=== PATIENT | female | born 1960 | race Caucasian/White ===

== ENCOUNTER → 2019-12-03 | Outpatient (CLI) | payer OTHER ==
[~2019-12-03] MED LIST: ACETAMINOPHEN-1 EAC1 PO; ADULT LOW DOSE81 MG PO; ROBAXIN500 MG PO; ZOCOR 20 MG TAB20 M1 PO
--- NOTE | 2019-12-03 16:49 | 2DMMODE ---
[place] [address] 2 D/M-MODE ECHOCARDIOGRAM Name: JESSICA COTTER Room: [facility]#: [id number] Admission: 12/03/19 Attend Phys: Delgado Dougherty, Discharge: Date of : 60 Date of Service: 12/03/19 1648 Report #: [id number] THIS REPORT FOR: cc: Shaniqua Cantrell MD, Lin W. MD Blick, David R. MD [facility] ~ APPROVED REPORT Study performed: 12/03/2019 15:39:57 EXAM: Comprehensive 2D, Doppler, and color-flow Echocardiogram Patient Location: Out-Patient BSA: 1.99 HR: 67 bpm BP: 118/79 mmHg Other Information Study Quality: Good Indications Palpitations Chest Pain 2D Dimensions IVSd: 11.28 (7-11mm) LVOT Diam: 20.78 (18-24mm) LVDd: 44.67 mm PWd: 11.04 (7-11mm) Ascending Ao: 31.21 (22-36mm) LVDs: 25.07 (25-40mm) Aortic Root: 28.80 mm Volumes Left Atrial Volume (Systole) LA ESV Index: 11.40 mL/m2 Aortic Valve AoV Peak Ede.: 1.18 m/s AO Peak Gr.: 5.56 mmHg LVOT Max P.52 mmHg AO Mean Gr.: 2.61 mmHg LVOT Mean P.58 mmHg LVOT Max V: 0.94 m/s AO V2 VTI: 21.53 cm LVOT Mean V: 0.57 m/s TREV (VTI): 3.27 cm2 LVOT V1 VTI: 20.78 [place] [address] 2 D/M-MODE ECHOCARDIOGRAM Name: JESSICA COTTER Room: [facility]#: [id number] Admission: 12/03/19 Attend Phys: Delgado Dougherty, Discharge: Date of : 60 Date of Service: 12/03/19 1648 Report #: [id number] E/A Ratio: 0.93 MV Decel. Time: 254.85 ms MV E Max Ede.: 0.52 m/s MV PHT: 73.91 ms MVA (PHT): 2.98 cm2 TDI E/Lateral E': 4.73 E/Medial E': 8.67 Medial E' Ede.: 0.06 m/s Lateral E' Ede.: 0.11 m/s Pulmonary Valve PV Peak Ede.: 1.00 m/s PV Peak Gr.: 4.02 mmHg Tricuspid Valve RAP Estimate: 5.00 mmHg TR Peak Gr.: 24.50 mmHg RVSP: 29.50 mmHg PA Pressure: 29.50 mmHg Left Ventricle The left ventricle is normal size. There is normal LV segmental wall motion. There is normal left ventricular wall thickness. Left ventricular systolic function is normal. The left ventricular ejection fraction is within the normal range. LVEF is 55-60%. Grade I - abnormal relaxation pattern. Right Ventricle The right ventricle is normal size. The right ventricular systolic function is normal. Atria The left atrium size is normal. The right atrium size is normal. Aortic Valve The aortic valve is normal in structure. No aortic regurgitation is present. There is no aortic valvular stenosis. Mitral Valve The mitral valve is normal in structure. Mild mitral regurgitation. No evidence of mitral valve stenosis. Tricuspid Valve The tricuspid valve is normal in structure. Mild [place]icus[place] [address] 2 D/M-MODE ECHOCARDIOGRAM Name: JESSICA COTTER Room: [facility]#: [id number] Admission: 12/03/19 Attend Phys: Delgado Dougherty, Discharge: Date of : 60 Date of Service: 12/03/19 1648 Report #: [id number] Pulmonic Valve The pulmonary valve is normal in structure. There is no pulmonic valvular regurgitation. Great Vessels The aortic root is normal in size. IVC is normal in size and collapses >50% with inspiration. Pericardium There is no pericardial effusion. <Conclusion> Left ventricular systolic function is normal. The left ventricular ejection fraction is within the normal range. <ELECTRONICALLY SIGNED> By: Betito Negron MD, FACC 12/03/191647 47 47 Betito Negron MD, FAC /INF
--- NOTE | 2019-12-03 17:06 | EXE ---
[place] [address] STRESS ECHOCARDIOGRAM Name: JESSICA COTTER Room: [facility]#: [id number] Admission: 12/03/19 Attend Phys: Delgado Dougherty, Discharge: Date of : 60 Date of Service: 12/03/19 1705 Report #: [id number] THIS REPORT FOR: cc: Shaniqua Cantrell MD, Lin W. MD Blick, David R. MD [facility] ~ APPROVED REPORT Study performed: 12/03/2019 15:55:21 Exam: Stress Echocardiogram Indication: Chest pain , Palpitations Patient Location: Out-Patient Stress Nurse: Anahi Gage RN Supervising Physician: Betito Negron MD Ht: 5 ft 2 in HR: 65 bpm BP: 118/79 mmHg Medical History Cardiac Risk Factors: FHX of CAD Procedure The patient underwent an Exercise Stress Test using the Brian Protocol. Blood pressure, heart rate, and EKG were monitored. An Echocardiogram was performed by nuclear reactor technician in four stages in quad fashion. At peak stress, four selected images were obtained and placed side by side with resting images for comparison. Stress Test Details Stress Test: Exercise stress testing was performed using a Brian protocol. HR Resting HR: 65 bpm Max Heart Rate (APMHR): 161 bpm Max HR Achieved: 138 bpm Target HR (85% APMHR): 136 bpm % of APMHR: 85 Recovery HR: 86 bpm HR response to stress: Normal HR response to stress BP Resting BP: 118/79 mmHg Max BP: 200/94 mmHg Recovery BP: 139/82 mmHg BP response to stress: [place] [address] STRESS ECHOCARDIOGRAM Name: JESSICA COTTER Room: [facility]#: [id number] Admission: 12/03/19 Attend Phys: Delgado Dougherty, Discharge: Date of : 60 Date of Service: 12/03/19 1705 Report #: [id number] stress. ECG Resting ECG: Sinus Rhythm, nonspecific ST-T abnormalities Stress ECG: Sinus Rhythm, nonspecific ST-T abnormalities ST Change: Upsloping ST depression Maximum ST Deviation: 1 mm Arrhythmia: None Recovery ECG: Sinus Rhythm, nonspecific ST-T abnormalities Recovery ST Change: Normal Recovery ST Deviation: 0 mm Recovery Arrhythmia: None Clinical Reason for Termination: Maximal effort Exercise duration: 9 min 08 sec Highest Stage Achieved: Stage 3: 3.4 mph at 14% grade. Exercise capacity: 10.35 METs Pre-Stress Echo The resting Echocardiogram showed normal left ventricular contractility with an estimated Ejection Fraction of about 60-65%. Post-Stress Echo The stress Echocardiogram showed normal left ventricular contractility with an estimated Ejection Fraction of about >70%. Compared to rest, there were no stress-induced wall motion abnormalities. Conclusion Clinical Response: Non-ischemic Exercise Capacity: Superior Stress ECG Response: Indeterminant Stress Echo Images: Non-ischemic low risk stress echo for predicting future cardiac events Other Information Study Quality: [place] [address] STRESS ECHOCARDIOGRAM Name: JESSICA COTTER Room: [facility]#: [id number] Admission: 12/03/19 Attend Phys: Delgado Dougherty, Discharge: Date of : 60 Date of Service: 12/03/191704 Report #: [id number] <Conclusion> low risk stress echo for predicting future cardiac events <ELECTRONICALLY SIGNED> By: Betito Negron MD, FACC 12/03/191704 04 04 Betito Negron MD, FACC /INF
== END ==
LOC: M.CRD 11-19 16:37
DX: I08.1 Rheumatic disorders of both mitral and tricuspid valves (principal)